=== PATIENT | female | born 1950 | race Caucasian/White ===

== ENCOUNTER 2020-11-28 16:07 | Outpatient (RCR) | payer MEDICARE, SELFPAY ==
[2017-05-21 07:40] VITALS: BMI 26.4
[2020-11-28] MEDS: COVID-19 VACC, MRNA(PFIZER)/PF 30 MCG/0.3 ML SYRINGE IM (11:54)
[2020-12-19] MEDS: COVID-19 VACC, MRNA(PFIZER)/PF 30 MCG/0.3 ML SYRINGE IM (11:20)
== END 2021-02-27 23:59 ==
LOC: IMMUN 16:07
PROVIDERS: PCP Family Medicine; Referring Provider Family Medicine; Visit Provider Family Medicine
DX: Z23 Encounter for immunization (principal)
CPT/HCPCS: 0001A; 0002A; 91300

== ENCOUNTER → 2021-03-29 | Outpatient (CLI) | payer MEDICARE, SELFPAY ==
[2017-05-21 07:40] VITALS: BMI 26.4
[2021-04-02 20:22] LABS: Fats, Neutral Normal (.); Fats, Total Normal (.)
== END | disposition home or self-care (01) ==
LOC: LABSPEC 10:45
PROVIDERS: PCP Family Medicine; Referring Provider Internal Medicine Gastroenterology; Visit Provider Internal Medicine Gastroenterology
DX: R19.7 Diarrhea, unspecified (principal)
CPT/HCPCS: 82705

== ENCOUNTER → 2021-04-06 08:45 | Outpatient (CLI) | payer MEDICARE, SELFPAY ==
[2017-05-21 07:40] VITALS: BMI 26.4
--- NOTE | 2021-04-06 08:55 | RAD_ITS ---
STUDY: X-RAY - ESOPHAGUS (BARIUM SWALLOW) WITH FLUOROSCOPY REASON FOR EXAM: Female, 70 years old. DYSPHAGIA -- 12MM TAB TECHNIQUE: 34 view(s) of the esophagus were obtained following swallowing of barium. FLUOROSCOPY TIME (if supplied): (34 seconds) minutes/seconds. 19 fluoroscopic images were obtained. COMPARISON: None. FINDINGS: There is no demonstrated esophageal foreign body. 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 The patient ingested a 12 mm tablet of barium. The tablet is trapped in the distal esophagus at the level of the weblike stenosis. There is atherosclerotic tortuosity of the aortic arch and descending thoracic aorta. Normal visualized pulmonary parenchyma. Normal visualized osseous structures of the thorax. 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 Electronically Signed: Alessio Solano MD at 9:17 EDT , Service support ,
== END ==
PROVIDERS: PCP Family Medicine; Referring Provider Internal Medicine Gastroenterology; Visit Provider Internal Medicine Gastroenterology
DX: R13.10 Dysphagia, unspecified (principal)
CPT/HCPCS: 74221